=== PATIENT | female | born 1960 | race Caucasian/White ===

== ENCOUNTER 2020-06-03 09:31 | Outpatient (CLI) | payer MEDICARE, SELFPAY ==
--- NOTE | 2020-06-03 09:38 | MR_ITS ---
WS: [id number] MRI LUMBAR SPINE NONCONTRAST HISTORY: LOW BACK PAIN COMPARISON: None available. TECHNIQUE: Sagittal and axial multisequence imaging is submitted. Study is compromised by motion artifact. Reversal normal cervical curvature centered at C5. L5 anterolisthesis by 4.4 mm. No fracture or marrow edema. Mild disc space narrowing and desiccation. Conus terminates normally at L1-2 disc level. L1-L2: Normal. L2-L3: Normal. L3-L4: Mild annular disc bulging and facet arthritis. No stenosis. Very mild narrowing of the LEFT fo ramen. L4-L5: Mild annular disc bulging with mild ligamentum flavum disease and facet arthritis. Small osteo phytes in the disc disease or contributing to mild bilateral foraminal stenosis, slightly greater on the RIGHT. There is mild deformity of the thecal sac at the L4-5 level in part due to the mild harry listhesis of L5. No entrapment of the nerve roots. L5-S1: Mild annular disc bulging and slight unroofing of the disc due to the L5 anterolisthesis. No c entral stenosis. Mild bilateral foraminal stenosis. The disc bulging is mildly contacting the undersu rface of the L5 nerve roots bilaterally. Mild atherosclerosis aorta. 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 MR/MR lumbar spine wo con* [id number] IMPRESSION: 1. Grade 1 anterolisthesis of L5. 2. Mild bilateral foraminal stenosis at L4-5 and L5-S1. 3. No central stenosis.
--- NOTE | 2020-06-03 09:38 | XR_ITS ---
WS: [id number] LATERAL LUMBAR SPINE: 3 view. Lateral radiographs are performed in upright neutral, flexion and extension to the patient's toleranc e. HISTORY: LOW BACK PAIN COMPARISON: None available. L5 anterolisthesis by 7.5 mm on neutral imaging. During flexion the anterolisthesis is 5.7 mm and ext ension 5.9 mm. Mild retrolisthesis of L4 by 3 mm is stable. No fractures. Bilateral pars defects are suspected at L5 . Atherosclerosis aorta. XR/XR lumbar spine f/e only [id number] IMPRESSION: 1. Grade 1 spondylolisthesis of L5. Pars defects are suspected. 2. Mild flexion extension instability at L5. 3. L4 retrolisthesis by 3 mm with no instability.
== END 2020-06-03 09:32 | disposition home or self-care (01) ==
LOC: RADWPI 09:35
PROVIDERS: PCP Family Medicine; Visit Provider Nurse Practitioner
DX: M43.16 Spondylolisthesis, lumbar region (principal); M53.2X6 Spinal instabilities, lumbar region; M48.061 Spinal stenosis, lumbar region without neurogenic claudication; M48.07 Spinal stenosis, lumbosacral region
CPT/HCPCS: 72120; 72148